=== PATIENT | male | born 1995 | race Caucasian/White ===

== ENCOUNTER 2022-01-30 16:32 | Emergency (ER) | payer OTHER ==
[2022-01-30 16:55] VITALS: BP 132/81; PULSE 100; TEMP 97.9; BMI 32.5
== END 2022-01-30 17:51 | disposition home or self-care (01) ==
LOC: JERFT 16:32
DX: S63.501A Unspecified sprain of right wrist, initial encounter (principal); X50.0XXA Overexertion from strenuous movement or load, initial encounter
CPT/HCPCS: 73110-TC-RT-FY; 99283-25

== ENCOUNTER 2022-04-17 09:03 | Emergency (ER) | payer OTHER ==
[2022-04-17 09:12] VITALS: BP 117/83; PULSE 73; TEMP 98.1; BMI 32.3
[2022-04-17] MEDS ORDERED: IBUPROFEN 600 MG TABLET (FP) PO ONE ×2 (09:30→09:52)
== END 2022-04-17 10:01 | disposition home or self-care (01) ==
LOC: JER 09:03 → JERFT 09:03
DX: M25.531 Pain in right wrist (principal)
CPT/HCPCS: 73110-TC-RT-FY; 73130-TC-RT-FY; 99283-25

== ENCOUNTER 2023-06-18 09:05 | Emergency (ER) | payer OTHER ==
[2023-06-18 09:17] VITALS: BP 123/75; PULSE 70; RESP 20; TEMP 97.9; BMI 38.0
== END 2023-06-18 11:05 | disposition home or self-care (01) ==
LOC: JERFT 09:05
DX: H92.01 Otalgia, right ear (principal); H60.91 Unspecified otitis externa, right ear
CPT/HCPCS: 87651; 99283-25

== ENCOUNTER 2023-06-19 07:52 | Emergency (ER) | payer OTHER ==
[2023-06-19 07:56] VITALS: BMI 38.0
[2023-06-19] MEDS ORDERED: KETOROLAC TROMETHAMINE 60 MG/2 ML VIAL ONE (12:02)
[2023-06-19] MEDS ORDERED: KETOROLAC TROMETHAMINE 30 MG/1 ML VIAL IM ONE ×2 (12:06→12:45)
[2023-06-19] MEDS ORDERED: CEFTRIAXONE 1 GM/50 ML BAG ONE (13:01)
[2023-06-19 13:10] LABS: BASO % 0.4 % (0-2.0); EOS % 0.2 % (0-4.5); HEMATOCRIT 45.5 % (35.4-49); HEMOGLOBIN 14.8 GM/dL (11.7-16.9); LYMPH % 11.8 % (8-40); MCH 27.9 pg (25.7-33.7); MCHC 32.6 g/dl (32.0-35.9); MEAN CELL VOLUME 85.6 fl (80-96); MEAN PLT VOLUME 8.4 fl (7.5-11.1); MONO % 6.9 % (3.8-10.2); NEUT % 80.7 % (42.8-82.8); PLATELET COUNT 227 10^3/uL (134-434); RBC 5.31 M/mm3 (4.00-5.60); RDW 13.6 % (11.9-15.9); WHITE BLOOD COUNT 11.6 K/mm3 (4.0-10.0)
[2023-06-19 13:18] VITALS: BP 123/81; PULSE 78; RESP 16; TEMP 98.6
[2023-06-19 14:11] LABS: POTASSIUM 4.1 mmol/L (3.5-5.1)
[2023-06-19 14:14] LABS: ALBUMIN 4.2 g/dl (3.4-5.0)
[2023-06-19 14:18] LABS: BILIRUBIN,TOTAL 0.7 mg/dL (0.2-1); TOT PROT 7.4 g/dl (6.4-8.2)
[2023-06-19 14:28] LABS: CALCIUM 9.1 mg/dL (8.5-10.1)
== END 2023-06-19 14:54 | disposition home or self-care (01) ==
LOC: JERFT 07:52
PROC: 3E0233Z Introduction of Anti-inflammatory into Muscle, Percutaneous Approach (ICD-10-PCS; principal; 2023-06-19)
DX: H66.91 Otitis media, unspecified, right ear (principal)
CPT/HCPCS: 36415; 70480-TC; 80053; 83605; 85025; 87040; 99284-25